=== PATIENT | male | born 1955 | race Caucasian/White ===

== ENCOUNTER 2019-05-28 22:33 | Emergency (ER) | payer MEDICAID, SELFPAY ==
[2019-05-28 22:41] VITALS: BP 153/95; PULSE 79; RESP 18; TEMP 36.4; O2SAT 100; BMI 20.5
--- NOTE | 2019-05-28 22:59 | CTR_ITS ---
PROCEDURE INFORMATION: Exam: CT Head Without Contrast Exam date and time: 05/28/2019 11:01 PM Age: 63 years old Clinical indication: Altered mental status/memory loss; Confusion or disorientation; Patient HX: Amd - possible accidental od; Additional info: AMS TECHNIQUE: Imaging protocol: Computed tomography of the head without contrast. Total DLP: 739.98 mGy-cm Radiation optimization: All CT scans at this facility use at least one of these dose optimization techniques: automated exposure control; mA and/or kV adjustment per patient size (includes targeted exams where dose is matched to clinical indication); or iterative reconstruction. COMPARISON: No relevant prior studies available. FINDINGS: Brain: Normal. No hemorrhage. Unremarkable white matter. No mass effect. Ventricles: Normal. No ventriculomegaly. Bones/joints: Unremarkable. No acute fracture. Sinuses: Visualized sinuses are unremarkable. No fluid levels. Mastoid air cells: Visualized mastoid air cells are well aerated. Soft tissues: Unremarkable. CT/CT head wo con* [id number] IMPRESSION: Negative for intracranial hemorrhage or mass effect. Radiation Dose CTDIVOL = (mGy): DLP = 739.98 (mGy-cm)
--- NOTE | 2019-05-28 22:59 | XR_ITS ---
WS: [id number] PORTABLE CHEST HISTORY: ams COMPARISON: 05/29/2015 Hyperinflated lungs with chronic emphysema. No pneumonia. No pulmonary nodule or mass. Calcification associated with the LEFT hemidiaphragm. No pleural effusion or pneumothorax. Cardiac size: Normal. Mediastinum/Aorta: Mild ectasia aorta. No osseous abnormality seen. XR/XR chest 1V portable [id number] IMPRESSION: Chronic emphysema. No pneumonia.
--- NOTE | 2019-05-28 23:00 | ECG_ITS ---
Measurements Intervals [place] Rate: 69 P: 66 CT: 164 QRS: -81 QRSD: 106 T: 47 QT: 413 QTc: 443 SINUS RHYTHM LEFT ANTERIOR FASCICULAR BLOCK [QRS AXIS <= -45, QR IN I, RS IN II] POSSIBLE ANTERIOR MYOCARDIAL INFARCTION , OF INDETERMINATE AGE [30 ms Q WAVE IN V3/V4, OR R < 0.2 mV IN V4] No previous ECG available for comparison Electronically Signed On 05-29-2019 18:16:07 CDT by Alivia Robin M.D. [email or web address]
[2019-05-28] MEDS: sodium chloride 0.9% 1,000 ML 999 ML IV (23:14)
[2019-05-28 23:20] LABS: Basophils % 0.8 %; Eosinophils # 0.1 10^3/uL (0.0-0.8); Hematocrit 40.4 % (42.0-52.0); Hemoglobin 13.3 g/dL (11.7-16.6); Lymphocytes # 1.1 10^3/uL (0.8-4.8); Lymphocytes % 20.3 %; Mean Corpuscular HGB Conc 32.9 g/dL (30.0-36.0); Mean Corpuscular Hemoglobin 30.4 pg (28.0-34.0); Mean Corpuscular Volume 92.4 fL (80-94); Mean Platelet Volume 9.7 fL (7.4-10.4); Monocytes # 0.5 10^3/uL (0.2-0.9); Monocytes % 9.8 %; Neutrophils # 3.5 10^3/uL (1.8-7.7); Neutrophils % 67.5 %; Nucleated Red Blood Cells % 0 %; Platelet Count 294 10^3/cmm (130-400); Red Blood Count 4.37 10^6/uL (4.1-5.3); White Blood Count 5.2 10^3/uL (4.0-10.0)
[2019-05-28 23:20] LABS: ABG PCO2 40.5 mmHg (35-45); ABG PH Result 7.41 (7.35-7.45); Arterial Blood Gas Hematocrit 40.6 % (42-52); Base Excess ABG 1.1 mmol/L (-2.0-2.0); Blood Gas Allen Test Pos; Blood Gas Sample Site Radial, left; Blood Gas Sample Type Arterial; HCO3 ABG 25.8 mmol/L (22-26); PO2 ABG 90.4 mmHg (80.0-100.0)
[2019-05-28 23:32] VITALS: BP 153/95; PULSE 76; RESP 18; O2SAT 99
[2019-05-28 23:34] LABS: Alanine Aminotransferase 15 U/L (0-41); Albumin Level 4.9 g/dL (3.5-5.2); Alkaline Phosphatase 59 IU/L (40-130); Anion Gap 15.6 (5-19); Aspartate Amino Transferase 27 U/L (0-40); Blood Urea Nitrogen 7 mg/dL (8-23); Carbon Dioxide 26 mmol/L (22-29); Chloride 96 mmol/L (98-107); Globulin 2.4 g/dL (1.3-4.6); Glomerular Filtration Rate 75.5 mL/min (90-130); Glucose 101 mg/dL (65-115); Osmolality Calculated 274 mOsm/kg (285-295); Potassium 3.6 mmol/L (3.5-5.1); Sodium 134 mmol/L (136-145); Total Bilirubin 0.5 mg/dL (0.15-1.2); Total Protein 7.3 g/dL (6.6-8.7)
[2019-05-28 23:35] VITALS: BP 153/95
[2019-05-28 23:42] LABS: Acetaminophen < 5.0 ug/mL (10-30); Alcohol Level < 10 mg/dL (0-10); Salicylate < 0.3 mg/dL (3-10)
--- NOTE | 2019-05-28 23:42 | ED_ITS ---
HPI - Altered Mental Status General: Chief Complaint: Altered Mental Status Stated Complaint: poss accidental od Time Seen by Provider: 05/28/19 22:43 History of Present Illness: HPI narrative: 63-year-old male here with confusion. He states that he takes hydrocodone every day, has been taking them more often because of increased pain, which is chronic between his shoulder blades and for which she goes to the pain clinic and gets injections. He said that he was stressed out, and took 1 to have his family members Xanax today as well. He also started Wellbutrin today. He denies any fever, trouble urinating, other neurological symptoms. MD complaint: confusion Onset (ago): hour(s) Severity: mild Context: change in medication Associated symptoms: Reports depression; Deny auditory hallucinations, visual hallucinations, delusions, homicidal ideation or suicidal ideation Review of Systems Const: Denies: fever or chills Eyes: Denies: change in vision or blurry vision ENMT: Reports: Change in hearing; Denies: painful swallowing, post nasal drip or facial/sinus pain Card: Denies: chest pain, palpitations, irregular heart rhythm or edema Resp: Denies: shortness of breath, productive cough, non-productive cough or wheezing GI: Denies: abdominal pain, nausea, vomiting or blood in stool : Denies: difficulty urinating, painful urination or blood in urine Musc: Reports: back pain; Denies: neck pain, redness or joint warmth Skin/Breast: Denies: rash, itching or redness Neuro: Reports: confusion and seizure-like activity; Denies: headache, dizziness or vertigo Psych: Reports: depression; Denies: visual hallucinations, auditory hallucinations, suicidal ideation or homicidal ideation PFS ED PFSH: Social History Smoking and tobacco status: light tobacco smoker Physical Exam Const: COMMON NORMALS: alert GENERAL APPEARANCE: well developed ORIENTATION/CONSCIOUSNESS: Yes oriented to person, Yes oriented to place and Yes oriented to time HENMT: COMMON NORMALS: normocephalic, external ears normal and external nose normal HEAD & SCALP: normocephalic; no scalp tenderness FACE & SINUS: normal facial exam NOSE: external nose normal and no nasal discharge EXTERNAL EAR: Yes external ears normal Eye: COMMON NORMALS: PERRL, EOMs intact bilaterally and conjunctivae normal EYELID: eyelids normal CONJUNCTIVA: Yes conjunctivae normal PUPIL: Yes PERRL Neck/C-Spine: COMMON NORMALS: full ROM GENERAL: No tracheal deviation Chest: COMMONS NORMALS: inspection of chest normal CHEST: No tenderness Resp: COMMON NORMALS: clear to auscultation bilaterally EFFORT & INSPECTION: No tachypneic, No respiratory distress, No retractions, No uses accessory muscles and No tracheal deviation AUSCULTATION: clear to auscultation bilaterally, no rhonchi, no wheezes and lung sounds not diminished Cardio: COMMON NORMALS: regular rate and regular rhythm RATE: regular rate RHYTHM: regular rhythm HEART SOUNDS: no murmurs PERIPHERAL PULSES: radial pulses present GI: INSPECTION: No abdominal distension AUSCULTATION: No hyperactive bowel sounds and No hypoactive bowel sounds PALPATION: No guarding and No rigid PERCUSSION: no dullness to percussion and no tympanic to percussion Neuro: SENSORIUM/ORIENTATION: Yes alert, Yes oriented to person, Yes oriented to place and Yes oriented to time MENINGEAL SIGNS: No nuccal rigidity CRANIAL NERVES: Yes CN normal except as noted COORDINATION/BALANCE: [id number] test normal and lnax-bv-[id number] test normal SPEECH: abnormal speech Details: slurred (slight) SENSORY EXAM: Yes extremities MOTOR EXAM: no pronator drift COORDINATION: [id number]-ac-[id number] test normal and wmbp-ce-khpb test normal Psych: THOUGHT CONTENT: No delusion(s) Skin: COMMON NORMALS: no rashes or lesions noted GENERAL SKIN EXAM: no rashes or lesions noted Course Vital Signs: Vital signs: Vital Signs Temperature 97.5 F L 05/28/19 22:41 Pulse Rate 76 05/28/19 23:32 Respiratory Rate 18 05/28/19 23:32 Blood Pressure 141/85 05/29/19 00:30 Pulse Oximetry 94 05/29/19 00:30 MDM - Altered Mental Status MDM Narrative: Medical decision making narrative: Patient presents with some mild mental status changes, likely related to overuse of hydrocodone, and in combination with Xanax which he took today. His blood pressure is 143/84, his saturations are 100% on room air. He is resting comfortably in the room. He does answer questions essentially appropriately. His laboratory is benign, save being positive for opiates and benzodiazepines on his drug screen. His Tylenol and salicylate levels are not detectable. He does not have alcohol in his system. There is no urinary tract infection, pneumonia, or change on head CT to explain mental status change otherwise. He will be discharged home. Lab Data: Labs: Lab Results 05/28/19 05/28/19 05/28/19 Range/Units 22:45 22:45 23:15 WBC 5.2 (4.0-10.0) 10^3/ uL RBC 4.37 (4.1-5.3) 10^6/u L Hgb 13.3 (11.7-16.6) g/dL Hct 40.4 L (42.0-52.0) % MCV 92.4 (80-94) fL MCH 30.4 (28.0-34.0) pg MCHC 32.9 (30.0-36.0) g/dL RDW 12.0 L (12.1-15.1) % Plt Count 294 (130-400) 10^3/c mm MPV 9.7 (7.4-10.4) fL Neut % (Auto) 67.5 % Lymph % (Auto) 20.3 % [place] % (Auto) 9.8 % Eos % (Auto) 1.0 % Baso % (Auto) 0.8 % Neut # (Auto) 3.5 (1.8-7.7) 10^3/u L Lymph # (Auto) 1.1 (0.8-4.8) 10^3/u L [place] # (Auto) 0.5 (0.2-0.9) 10^3/u L Eos # (Auto) 0.1 (0.0-0.8) 10^3/u L Baso # (Auto) 0.0 (0.0-0.1) 10^3/u L Nucleated RBC % (a uto) 0 % Nucleated RBCs # 0.0 /100WBC Specimen Type Arterial Sample Site Radial, left ABG pH 7.41 (7.35-7.45) ABG pCO2 40.5 (35-45) mmHg ABG pO2 90.4 (80.0-100.0) mmH g ABG HCO3 25.8 (22-26) mmol/L ABG Base Excess 1.1 (-2.0-2.0) mmol/ L Walter Test Pos Hematocrit 40.6 L (42-52) % O2 Delivery Device None FiO2 21.0 % Emergency Medicine Nurse Practitioner ID [email or web address] Sodium 134 L (136-145) mmol/L Potassium 3.6 (3.5-5.1) mmol/L Chloride 96 L (98-107) mmol/L Carbon Dioxide 26 (22-29) mmol/L Anion Gap 15.6 (5-19) BUN 7 L (8-23) mg/dL Creatinine 1.0 (0.7-1.2) mg/dL GFR Calculation 75.5 L (90-130) mL/min Glucose 101 (65-115) mg/dL Calculated Osmolal ity 274 L (285-295) mOsm/k g Calcium 10.0 (8.5-10.5) mg/dL Total Bilirubin 0.5 (0.15-1.2) mg/dL AST 27 (0-40) U/L ALT 15 (0-41) U/L Alkaline Phosphata se 59 (40-130) IU/L Total Protein 7.3 (6.6-8.7) g/dL Albumin 4.9 (3.5-5.2) g/dL Globulin 2.4 (1.3-4.6) g/dL Urine Color (Yellow) Urine Appearance (CLEAR) Urine pH (5-7) Ur Specific Gravit y (1.005-1.030) Urine Protein (Negative) Urine Glucose (UA) (Normal) Urine Ketones (Negative) Urine Blood (Negative) Urine Nitrate (Negative) Urine Bilirubin (NEGATIVE) Urine Urobilinogen (Negative) mg/dL Ur Leukocyte Maxine ase (Negative) Salicylates < 0.3 L (3-10) mg/dL Urine Opiates Scre en (Negative) ng/mL Acetaminophen < 5.0 L (10-30) ug/mL Ur Barbiturates Sc reen (Negative) ng/mL Ur Phencyclidine S crn (Negative) ng/mL Ur Amphetamines Sc reen (Negative) ng/mL U Benzodiazepines Scrn (Negative) ng/mL Urine Cocaine Scre en (Negative) ng/mL U Marijuana (THC) Screen (Negative) ng/mL Ethyl Alcohol < 10 (0-10) mg/dL 05/28/19 05/28/19 Range/Units 23:28 23:28 WBC (4.0-10.0) 10^3/ uL RBC (4.1-5.3) 10^6/u L Hgb (11.7-16.6) g/dL Hct (42.0-52.0) % MCV (80-94) fL MCH (28.0-34.0) pg MCHC (30.0-36.0) g/dL RDW (12.1-15.1) % Plt Count (130-400) 10^3/c mm MPV (7.4-10.4) fL Neut % (Auto) % Lymph % (Auto) % [place] % (Auto) % Eos % (Auto) % Baso % (Auto) % Neut # (Auto) (1.8-7.7) 10^3/u L Lymph # (Auto) (0.8-4.8) 10^3/u L [place] # (Auto) (0.2-0.9) 10^3/u L Eos # (Auto) (0.0-0.8) 10^3/u L Baso # (Auto) (0.0-0.1) 10^3/u L Nucleated RBC % (a uto) % Nucleated RBCs # /100WBC Specimen Type Sample Site ABG pH (7.35-7.45) ABG pCO2 (35-45) mmHg ABG pO2 (80.0-100.0) mmH g ABG HCO3 (22-26) mmol/L ABG Base Excess (-2.0-2.0) mmol/ L Walter Test Hematocrit (42-52) % O2 Delivery Device FiO2 % Emergency Medicine Nurse Practitioner ID Sodium (136-145) mmol/L Potassium (3.5-5.1) mmol/L Chloride (98-107) mmol/L Carbon Dioxide (22-29) mmol/L Anion Gap (5-19) BUN (8-23) mg/dL Creatinine (0.7-1.2) mg/dL GFR Calculation (90-130) mL/min Glucose (65-115) mg/dL Calculated Osmolal ity (285-295) mOsm/k g Calcium (8.5-10.5) mg/dL Total Bilirubin (0.15-1.2) mg/dL AST (0-40) U/L ALT (0-41) U/L Alkaline Phosphata se (40-130) IU/L Total Protein (6.6-8.7) g/dL Albumin (3.5-5.2) g/dL Globulin (1.3-4.6) g/dL Urine Color Yellow (Yellow) Urine Appearance Clear (CLEAR) Urine pH 6 (5-7) Ur Specific Gravit y 1.015 (1.005-1.030) Urine Protein Neg (Negative) Urine Glucose (UA) Norm (Normal) Urine Ketones Negative (Negative) Urine Blood Neg (Negative) Urine Nitrate Negative (Negative) Urine Bilirubin Neg (NEGATIVE) Urine Urobilinogen Norm (Negative) mg/dL Ur Leukocyte Maxine ase Negative (Negative) Salicylates (3-10) mg/dL Urine Opiates Scre en Positive H (Negative) ng/mL Acetaminophen (10-30) ug/mL Ur Barbiturates Sc reen Negative (Negative) ng/mL Ur Phencyclidine S crn Negative (Negative) ng/mL Ur Amphetamines Sc reen Negative (Negative) ng/mL U Benzodiazepines Scrn Positive H (Negative) ng/mL Urine Cocaine Scre en Negative (Negative) ng/mL U Marijuana (THC) Screen Negative (Negative) ng/mL Ethyl Alcohol (0-10) mg/dL Discharge Plan Discharge Patient Disposition: Home, Self-Care Clinical Impression: Altered mental status Qualifiers: Altered mental status type: disorientation Qualified Code(s): R41.0 - Disorientation, unspecified Overdose of analgesic Qualifiers: Encounter type: initial encounter Injury intent: accidental or unintentional Qualified Code(s): T39.91XA - Poisoning by unspecified nonopioid analgesic, antipyretic and antirheumatic, accidental (unintentional), initial encounter Condition: Stable Discharge Orders: Discharge Order (Routine); Ordered 05/29/19 Ordered By: Myles De La Garza Discharge Diet: Usual diet Discharge Activity: Increase activity as tolerated Activity Restrictions/Additional Instructions: Stop pain medications for 24 to 48 hours to allow them to clear from your system. Do not take benzodiazepines such as Xanax in combination with pain medication. Return for fever, increasing confusion despite the above, other neurologic symptoms such as weakness, other concerning symptoms. Discharge Date/Time: 05/29/19 00:53 Coding Level of Care Code ED Production Supervisor Off Shift for Ani Fwd Exam Comprehensive
[2019-05-29] VITALS: BP 145/87; O2SAT 97
[2019-05-29 00:14] LABS: Add Urine Microscopic? NO
[2019-05-29 00:16] LABS: Bilirubin Urine Neg (NEGATIVE); Blood Urine Neg (Negative); Glucose Urine UA Norm (Normal); Ketones Urine Negative (Negative); Leukocyte Esterase Urine Negative (Negative); Nitrate Urine Negative (Negative); Protein Urine Neg (Negative); Specific Gravity, Urine 1.015 (1.005-1.030); Urine Appearance Clear (CLEAR); Urine Color Yellow (Yellow); Urobilinogen Urine Norm (Negative); pH Urine 6 (5-7)
[2019-05-29 00:24] LABS: Amphetamines Screen Urine Negative (Negative); Barbiturates Screen Urine Negative (Negative); Benzodiazepines Screen Urine Positive (Negative); Cocaine Screen Urine Negative (Negative); Opiate Screen Urine Positive (Negative); PCP Screen Urine Negative (Negative); THC Screen Urine Negative (Negative)
[2019-05-29 00:30] VITALS: BP 141/85; O2SAT 94
== END 2019-05-29 00:53 | disposition home or self-care (01) ==
PROVIDERS: Emergency Provider Emergency Medicine
DX: T39.91XA Poisoning by unspecified nonopioid analgesic, antipyretic and antirheumatic, accidental (unintentional), initial encounter (principal); R41.82 Altered mental status, unspecified; F17.200 Nicotine dependence, unspecified, uncomplicated
CPT/HCPCS: 12345; 36600; 70450; 71045; 80053; 80306; 80307; 81003; 82803; 85025; 93005; 96360; 99283; A9270; J7030